=== PATIENT | female | born 1940 | race Caucasian/White ===

== ENCOUNTER 2016-06-06 13:22 | Outpatient (CLI) | payer MEDICARE | END 2016-06-06 13:23 | disposition home or self-care (01) | DX: Z12.31 Encounter for screening mammogram for malignant neoplasm of breast (principal) ==

== ENCOUNTER 2016-06-06 13:23 | Outpatient (CLI) | payer MEDICARE | END 2016-06-06 13:24 | disposition home or self-care (01) | DX: M81.0 Age-related osteoporosis without current pathological fracture (principal) ==

== ENCOUNTER 2017-09-01 16:27 | Outpatient (CLI) | payer MEDICARE | END 2017-09-01 16:28 | disposition EMS.NT | LOC: EMS 16:27 | PROVIDERS: ATTEND Surgery | DX: Z03.89 Encounter for observation for other suspected diseases and conditions ruled out (principal); V43.52XA Car driver injured in collision with other type car in traffic accident, initial encounter; Y92.413 State road as the place of occurrence of the external cause ==

== ENCOUNTER 2017-11-30 19:52 | Outpatient (CLI) | payer MEDICARE | END 2017-11-30 19:53 | disposition critical access hospital (66) | LOC: EMS 19:52 | PROVIDERS: ATTEND Surgery | DX: H57.13 Ocular pain, bilateral (principal) | CPT/HCPCS: A0425; A0429 ==

== ENCOUNTER 2017-11-30 20:18 | Emergency (ER) | payer MEDICARE ==
[2017-11-30] MEDS ORDERED: PROPARACAINE 0.5% OPHTH DROPS 15 ML EACHEYE STA (21:12)
--- NOTE | 2017-11-30 21:20 | ED Physician Documentation ---
PD HPI OPHTHO - Stated complaint Stated Complaint: EYES BURNING - Chief complaint Chief Complaint: Allergic Rx - History obtained from History obtained from: Patient, Family - History of Present Illness Timing - onset: Enter time (1830), Today Timing - duration: Hours Timing - details: Abrupt onset, Still present Location: Both Quality / character: Itching, Burning, Throbbing, Sharp Associated symptoms: Redness, Tearing, FB sensation, Photophobia. No: Swelling Contributing factors: Chemical exposure, base Similar symptoms before: Has not had sx before Recently seen: Not recently seen - Additional information Additional information: 76-year-old female was cleaning her commode earlier today with [place]. She states that about a half hour later she was sitting on her couch talking to her girlfriend on the phone and she developed acute pain and burning in both eyes with tearing and this was severe. She had to call her ex- she got a ride back to his house in [place] where she is now living and eventually she called the ambulance for transport to the hospital. Review of Systems Constitutional: denies: Fever, Chills Eyes: reports: Photophobia, Irritation. denies: Loss of vision, Decreased vision Ears: denies: Ear pain Nose: reports: Congestion. 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, Hysterectomy - Present Medications Home Medications: Ambulatory Orders Medication Instructions Recorded Confirmed Another Thyroid Medication 11/30/17 11/30/17 Estradiol 0.5 mg PO 11/30/17 Levothyroxine [Synthroid] 75 mcg PO QDAC 11/30/17 11/30/17 Neomycin/Poly/Dex Ophth Drops 1 drops EACHEYE QID #1 bottle 11/30/17 [Maxitrol Ophth Drops] - Allergies Allergies/Adverse Reactions: Allergies Allergy/AdvReac Type Severity Reaction Status Date / Time aspirin Allergy Unknown Verified 11/30/17 20:50 - Social History Does the pt smoke?: No Smoking Status: Never smoker Does the pt drink ETOH?: Yes Does the pt have substance abuse?: No - Immunizations Immunizations are current?: Yes PD ED PE NORMAL - Vitals Vital signs reviewed: Yes (hypertensive) - General General: Alert and 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, Well developed/nourished, Other (sitting with eyes closed and appears anxious) - HEENT HEENT: Atraumatic, PERRL, EOMI - Neck Neck: Supple, no meningeal sign, No bony TTP - Respiratory Respiratory: No respiratory distress - Derm Derm: Normal color, Warm and dry, No rash - Extremities Extremities: No deformity, No edema - Neuro Neuro: Alert and 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, 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 She is administered proparicaine and has immeadiate relief. She is irrigated with copious amounts of saline ( 1 liter to each eye). The [place] contains feldspar and exam of the cornea show uptake superficially consistent with an abrasion. - Sepsis Event Vital Signs: Vital Signs - 24 hr 11/30/17 20:32 Temperature 36.9 C Heart Rate 79 Respiratory 18 Rate Blood Pressure 176/78 H O2 Saturation 97 Oxygen O2 Source Room air Departure - Departure Disposition: 01 Home, Self Care Clinical Impression: Corneal abrasion of both eyes Qualifiers: Encounter type: initial encounter Qualified Code(s): S05.01XA - Injury of conjunctiva and corneal abrasion without foreign body, right eye, initial encounter; S05.02XA - Injury of conjunctiva and corneal abrasion without foreign body, left eye, initial encounter; S05.02XA - Injury of conjunctiva and corneal abrasion without foreign body, left eye, initial encounter Condition: Stable Instructions: ED Eye Injury Corneal Abrasion Follow-Up: River Arreola MD [Primary Care Provider] - Krishna Gunter MD [Provider Admit Priv/Credential] - Prescriptions: Neomycin/Poly/Dex Ophth Drops [Maxitrol Ophth Drops] 1 drops EACHEYE QID #1 bottle
[2017-11-30 22:45] LABS: BILIRUBIN,URINE NEGATIVE (NEGATIVE); GLUCOSE, URINE (UA) NEGATIVE (NEGATIVE); KETONES,URINE (UA) 40 mg/dL (NEGATIVE); LEUKOCYTE ESTERASE, URINE NEGATIVE (NEGATIVE); NITRITE,URINE NEGATIVE (NEGATIVE); OCCULT BLOOD,URINE NEGATIVE (NEGATIVE); PH,URINE 5.5 PH (5.0-7.5); PROTEIN,URINE NEGATIVE (NEGATIVE); UROBILINOGEN,URINE 0.2 (NORMAL) E.U./dL (NORMAL)
[2017-11-30] MEDS ORDERED: NEOMYCIN/POLYMYX/DEXAMETH OPHTH DROPS 5 ML EACHEYE STA (23:02)
[2017-11-30 23:15] LABS: CLARITY,URINE CLEAR (CLEAR)
[2017-11-30 23:26] VITALS: BP 151/70
== END 2017-11-30 23:26 | disposition home or self-care (01) ==
LOC: EDUNIT# → EDBD → ED 20:18
DX: S05.02XA Injury of conjunctiva and corneal abrasion without foreign body, left eye, initial encounter (principal); S05.01XA Injury of conjunctiva and corneal abrasion without foreign body, right eye, initial encounter; Y93.E9 Activity, other interior property and clothing maintenance; Y92.002 Bathroom of unspecified non-institutional (private) residence as the place of occurrence of the external cause
CPT/HCPCS: 81003; 99283; J3490; 81001; 87086

== ENCOUNTER 2018-03-15 16:46 | Outpatient (CLI) | payer MEDICARE ==
--- NOTE | 2018-03-17 10:31 | XRAY Report ---
Reason: Left 5th digit pain Procedure Date: 03/15/2018 Accession Number: [id number] / [id number] Procedure: XR - Foot 3 View LT CPT Code: FULL RESULT: EXAM: LEFT FOOT RADIOGRAPHY EXAM DATE: 03/15/2018 05:24 PM. CLINICAL HISTORY: Left 5th digit pain. COMPARISON: None. TECHNIQUE: 4 views. FINDINGS: Bones: Decreased bone mineralization. Subtle lucency through the base of the fifth proximal phalanx on the fifth toe radiograph, questionable for nondisplaced fracture. Small marginal erosion along the lateral aspect of the fifth proximal phalanx head. Joints: No dislocation. Soft Tissues: Nonspecific soft tissue calcification in the fifth digit soft tissues dorsal to the middle phalanx IMPRESSION: 1. Possible nondisplaced fracture at the base of the fifth proximal phalanx seen on one view only 2. Small marginal erosion in the lateral fifth proximal phalanx head. Gout can have this appearance. 3. Nonspecific soft tissue calcification volar to the fifth middle phalanx RADIA
== END 2018-03-15 16:47 | disposition home or self-care (01) ==
LOC: DI 16:46
PROVIDERS: ATTEND Nurse Practitioner Family
DX: M79.675 Pain in left toe(s) (principal); S99.922A Unspecified injury of left foot, initial encounter

== ENCOUNTER 2018-08-19 09:28 | Outpatient (CLI) | payer MEDICARE ==
[2018-08-19 18:49] LABS: ALBUMIN/GLOBULIN RATIO 1.7 (1.0-2.2); ALKALINE PHOSPHATASE 59 IU/L (42-121); ALT ALANINE AMINOTRANSFERASE 20 IU/L (10-60); AST ASPARTATE AMINOTRANSFERASE 32 IU/L (10-42); BILIRUBIN,TOTAL 0.8 mg/dL (0.2-1.0); BUN - BLOOD UREA NITROGEN 22 mg/dL (6-20); CALCIUM 8.9 mg/dL (8.5-10.3); CARBON DIOXIDE - CO2 29 mmol/L (21-32); CHLORIDE 102 mmol/L (101-111); CHOL/HDL RATIO 2.3 (<4.4); CHOLESTEROL 214 mg/dL; CREATININE 0.6 mg/dL (0.4-1.0); GFR - MDRD 97 (>89); GLUCOSE 85 mg/dL (70-100); HDL CHOLESTEROL 95 mg/dL; LDL CHOLESTEROL,CALCULATED 111 mg/dL; LDL/HDL RATIO 1.2 (<4.4); SODIUM 139 mmol/L (135-145); TOTAL PROTEIN 6.4 g/dL (6.7-8.2); VLDL CHOLESTEROL 8 mg/dL
== END 2018-08-19 09:29 | disposition home or self-care (01) ==
LOC: LAB.F 09:28
PROVIDERS: ATTEND Family Medicine
DX: E03.9 Hypothyroidism, unspecified (principal); E78.2 Mixed hyperlipidemia
CPT/HCPCS: 36415; 80053; 80061; 83721; 84443; 84481; 84482

== ENCOUNTER 2018-08-27 17:34 | Emergency (ER) | payer MEDICARE ==
--- NOTE | 2018-08-27 17:54 | ED Physician Documentation ---
History of Present Illness - Stated complaint Stated Complaint: SENT BY - Chief complaint Chief Complaint: Cardiac - History obtained from History obtained from: Patient - Additonal information Additional information: Patient is a 77-year-old female with history of hypothyroidism presenting from her PCPs office with likely new diagnosis of atrial flutter. Patient reports that approximately over the last 10 days she has felt short episodes of palpitations that also were associated with lightheadedness but no syncope. Patient denies associated chest or abdominal pain, shortness of breath, as well as any other new symptoms like fever, vomiting, urinary stool changes, cough recently. Patient also denies any recent travel, new medications, alcohol intake or other inciting incident that led to symptoms starting. Patient does however admit to significant stress at work. Patient's last cardiac workup was several years ago. No other improving or worsening factors to her symptoms noted. She is otherwise compliant with all her medications including her thyroid medication. Review of Systems Constitutional: denies: Fever Cardiac: reports: Palpitations. 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, Hysterectomy - Present Medications Home Medications: Ambulatory Orders Medication Instructions Recorded Confirmed Another Thyroid Medication 11/30/17 11/30/17 Levothyroxine [Synthroid] 75 mcg PO QDAC 11/30/17 11/30/17 RX: Estradiol 0.5 mg PO 11/30/17 Cephalexin [Keflex] 500 mg PO Q6H #12 capsule 05/21/18 RX: Metoprolol Tartrate 50 mg PO DAILY #10 tablet 08/27/18 - Allergies Allergies/Adverse Reactions: Allergies Allergy/AdvReac Type Severity Reaction Status Date / Time aspirin Allergy Unknown Verified 08/27/18 17:40 codeine AdvReac Nausea Verified 08/27/18 17:40 - Social History Does the pt smoke?: No Smoking Status: Never smoker Does the pt drink ETOH?: Yes Does the pt have substance abuse?: No - Immunizations Immunizations are current?: Yes - POLST Patient has POLST: No PD ED PE NORMAL - General General: Alert and 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, No acute distress, Well developed/nourished - HEENT HEENT: Atraumatic, Moist mucous membranes - Cardiac Cardiac: No murmur, Other (Somewhat irregular, normal rate) - Respiratory Respiratory: No respiratory distress, Clear bilaterally - Abdomen Abdomen: Normal bowel sounds, Soft, Non tender, Non distended - Derm Derm: Normal color, Warm and dry, No rash - Extremities Extremities: No deformity, No tenderness to palpate, No edema, No calf tenderness / cord - Neuro Neuro: Alert and 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, No motor deficit, No sensory deficit - Psych Psych: Normal mood, Normal affect Results - Vitals Vitals: Vital Signs - 24 hr 08/27/18 08/27/18 08/27/18 17:40 18:07 20:12 Temperature 36.6 C Heart Rate 72 78 98 Respiratory 16 18 18 Rate Blood Pressure 126/75 144/84 H 124/75 O2 Saturation 99 99 99 Oxygen O2 Source Room air - EKG (time done) 1751 Rate: Rate (enter#) (97) Rhythm: Atrial flutter - Labs Labs: Laboratory Tests 08/27/18 08/27/18 08/27/18 18:18 18:18 18:18 WBC 5.2 RBC 4.69 Hgb 14.0 Hct 42.9 MCV 91.6 MCH 29.9 MCHC 32.6 RDW 13.7 Plt Count 172 MPV 9.9 Neut # (Auto) 3.4 Lymph # (Auto) 1.2 L Craig # (Auto) 0.5 Eos # (Auto) 0.1 Baso # (Auto) 0.1 Absolute Nucleated RBC 0.00 Nucleated RBC % 0.0 Sodium 138 Potassium 3.6 Chloride 101 Carbon Dioxide 29 Anion Gap 8.0 BUN 20 Creatinine 0.6 Estimated GFR (MDRD) 97 Glucose 126 H Calcium 9.3 Total Bilirubin 0.9 AST 34 ALT 21 Alkaline Phosphatase 65 Troponin I 0.06 Total Protein 6.9 Albumin 4.0 Globulin 2.9 Albumin/Globulin Ratio 1.4 Lipase 35 PD MEDICAL DECISION MAKING - ED course Complexity details: reviewed old records, reviewed results, re-evaluated patient, considered differential, d/w patient ED course: Patient is presenting from her PCPs office with likely new diagnosis of atrial flutter. Reportedly, while in the PCPs office, patient had atrial flutter with RVR. However, upon arrival to the ED and during ED stay, patient remained in atrial flutter without RVR. Patient was also asymptomatic while in the ED. Patient had not received any medication prior to arrival. As patient has had these intermittent symptoms over the last several days, feel that she is likely in paroxysmal atrial flutter and as she is otherwise hemodynamically stable, asymptomatic and not anticoagulated, do not feel she is appropriate for emergent electrical cardioversion. Also do not feel patient requires IV medications at this time given her appropriate rate. Did obtain chest x-ray, EKG, and screening lab work to otherwise screen for other complications. Workup returned unremarkable. No signs of ACS, NE, unstable angina at this time. Patient is not hypoxic and denies symptoms that would raise high concern for PE.Do not see evidence of pneumonia. Patient does have underlying thyroid disorder and primary care physician has already discussed this issue with her and plans to adjust her thyroid medications as this could be contributing to her new arrhythmia. However, she does not appear to be in thyroid storm or experiencing other urgent autoimmune or thyroid issue. Patient's PCP has Scooter provided her Xarelto to start tomorrow. At this time, feel that metoprolol, low-dose, is appropriate to start for additional rate control until follow-up with her PCP later this week. Also discussed need for cardiology follow-up. Feel that patient is safe to discharge home otherwise and she has voiced understanding of strict return precautions and other recommendations. Departure - Departure Disposition: 01 Home, Self Care Clinical Impression: Atrial flutter Condition: Good Instructions: ED Paroxysmal Atrial Flutter Follow-Up: River Arreola MD [Primary Care Provider] - Within 3 Days Prescriptions: RX: Metoprolol Tartrate 50 mg PO DAILY #10 tablet Comments: Please continue home medications as previously instructed. Please take metoprolol to control the rate of your new abnormal rhythm. Please take Xarelto for blood thinning control. Please follow-up with your primary care physician as scheduled later this week. Recommend contacting cardiology as soon as possible to also establish follow-up to investigate your new heart arrhythmia. If you experience dizziness, lightheadedness, chest pain, difficulty breathing, or other concerns, please return to the ED immediately. Discharge Date/Time: 08/27/18 20:12
[2018-08-27] MEDS: SODIUM CHLORIDE 0.9% 1,000 ML IV ONE (18:21)
[2018-08-27 18:24] LABS: BASOPHILS # (AUTO) 0.1 10^3/uL (0.0-0.1); EOSINOPHILS # (AUTO) 0.1 10^3/uL (0.0-0.7); EOSINOPHILS % (AUTO) 2.1 %; LYMPHOCYTES # (AUTO) 1.2 10^3/uL (1.5-3.5); LYMPHOCYTES % (AUTO) 22.2 %; MEAN CORPUSCULAR HEMOGLOBIN 29.9 pg (27.0-31.0); MEAN CORPUSCULAR HGB CONC 32.6 g/dL (32.0-36.0); MEAN CORPUSCULAR VOLUME 91.6 fL (81.0-99.0); MEAN PLATELET VOLUME 9.9 fL (7.9-10.8); MONOCYTES # (AUTO) 0.5 10^3/uL (0.0-1.0); MONOCYTES % (AUTO) 9.6 %; NEUTROPHILS # (AUTO) 3.4 10^3/uL (1.5-6.6); NEUTROPHILS % (AUTO) 65.1 %; PLT - PLATELET COUNT 172 10^3/uL (130-450); RED BLOOD COUNT 4.69 10^6/uL (4.20-5.40); RED CELL DISTRIBUTION WIDTH 13.7 % (12.0-15.0); WHITE BLOOD COUNT 5.2 x10^3/uL (4.8-10.8)
[2018-08-27 18:42] LABS: ALBUMIN/GLOBULIN RATIO 1.4 (1.0-2.2); BILIRUBIN,TOTAL 0.9 mg/dL (0.2-1.0); CALCIUM 9.3 mg/dL (8.5-10.3); CREATININE 0.6 mg/dL (0.4-1.0); TOTAL PROTEIN 6.9 g/dL (6.7-8.2)
--- NOTE | 2018-08-27 18:50 | XRAY Report ---
Reason: new fib Procedure Date: 08/27/2018 Accession Number: [id number] / [id number] Procedure: XR - Chest 2 View X-Ray CPT Code: 64298 FULL RESULT: EXAM: CHEST RADIOGRAPHY EXAM DATE: 08/27/2018 06:15 PM. CLINICAL HISTORY: Chest pain COMPARISON: None. TECHNIQUE: 2 views. FINDINGS: Lungs/Pleura: No focal opacities evident. No pleural effusion. No pneumothorax. Normal volumes. Mediastinum: Heart and mediastinal contours are unremarkable. Other: None. IMPRESSION: No acute intrathoracic plain film abnormality. RADIA
[2018-08-27] MEDS ORDERED: METOPROLOL TARTRATE 50 MG TABLET ONE (19:25)
[2018-08-27] MEDS: METOPROLOL TARTRATE 50 MG TABLET PO STA (20:12)
[2018-08-27 20:13] VITALS: BP 124/75
[2018-08-28] MEDS ORDERED: METOPROLOL SUCCINATE 50 MG TABLET PO ONE (19:12)
== END 2018-08-27 20:12 | disposition home or self-care (01) ==
LOC: ED 17:34
DX: I48.92 Unspecified atrial flutter (principal); E03.9 Hypothyroidism, unspecified; R94.31 Abnormal electrocardiogram [ECG] [EKG]
CPT/HCPCS: 36415; 71046; 80053; 83690; 84443; 84484; 85025; 93005; 99283

== ENCOUNTER 2018-10-01 12:36 | Outpatient (CLI) | payer MEDICARE | END 2018-10-01 12:37 | disposition home or self-care (01) | LOC: DI 12:36 | PROVIDERS: ATTEND Internal Medicine Cardiovascular Disease | DX: I48.0 Paroxysmal atrial fibrillation (principal); I27.20 Pulmonary hypertension, unspecified; I51.7 Cardiomegaly | CPT/HCPCS: 93306 ==

== ENCOUNTER 2019-01-22 09:01 | Outpatient (CLI) | payer MEDICARE ==
[2019-01-22 17:56] LABS: BASOPHILS % (AUTO) 0.7 %; EOSINOPHILS # (AUTO) 0.1 10^3/uL (0.0-0.7); HGB - HEMOGLOBIN 15.1 g/dL (12.0-16.0); LYMPHOCYTES # (AUTO) 1.4 10^3/uL (1.5-3.5); LYMPHOCYTES % (AUTO) 31.3 %; MEAN CORPUSCULAR HEMOGLOBIN 28.2 pg (27.0-31.0); MEAN CORPUSCULAR VOLUME 94.2 fL (81.0-99.0); MONOCYTES # (AUTO) 0.3 10^3/uL (0.0-1.0); MONOCYTES % (AUTO) 6.5 %; NEUTROPHILS # (AUTO) 2.7 10^3/uL (1.5-6.6); NEUTROPHILS % (AUTO) 59.1 %; PLT - PLATELET COUNT 206 10^3/uL (130-450); RED BLOOD COUNT 5.35 10^6/uL (4.20-5.40); RED CELL DISTRIBUTION WIDTH 15.5 % (12.0-15.0); WHITE BLOOD COUNT 4.6 x10^3/uL (4.8-10.8)
[2019-01-22 18:10] LABS: ALBUMIN 4.1 g/dL (3.2-5.5); ALBUMIN/GLOBULIN RATIO 1.3 (1.0-2.2); ALKALINE PHOSPHATASE 66 IU/L (42-121); ALT ALANINE AMINOTRANSFERASE 19 IU/L (10-60); AST ASPARTATE AMINOTRANSFERASE 32 IU/L (10-42); BILIRUBIN,TOTAL 1.1 mg/dL (0.2-1.0); BUN - BLOOD UREA NITROGEN 14 mg/dL (6-20); CALCIUM 9.2 mg/dL (8.5-10.3); CARBON DIOXIDE - CO2 30 mmol/L (21-32); CHLORIDE 100 mmol/L (101-111); CHOL/HDL RATIO 2.4 (<4.4); CHOLESTEROL 221 mg/dL; CREATININE 0.7 mg/dL (0.4-1.0); GFR - MDRD 81 (>89); GLUCOSE 83 mg/dL (70-100); HDL CHOLESTEROL 91 mg/dL; LDL CHOLESTEROL,CALCULATED 117 mg/dL; LDL/HDL RATIO 1.3 (<4.4); SODIUM 139 mmol/L (135-145); TOTAL PROTEIN 7.2 g/dL (6.7-8.2); VLDL CHOLESTEROL 13 mg/dL
[2019-01-22 18:12] LABS: HB2 TOTAL 15.6 g/dL; HEMOGLOBIN A1C 0.62 g/dL; HEMOGLOBIN A1C % 5.8 % (4.6-6.2)
== END 2019-01-22 09:02 | disposition home or self-care (01) ==
LOC: LAB.S 09:01
PROVIDERS: ATTEND Family Medicine
DX: I10 Essential (primary) hypertension (principal); E78.5 Hyperlipidemia, unspecified; E03.9 Hypothyroidism, unspecified; Z13.1 Encounter for screening for diabetes mellitus; M81.0 Age-related osteoporosis without current pathological fracture
CPT/HCPCS: 36415; 80053; 80061; 82306; 83036; 83721; 84443; 85025

== ENCOUNTER 2019-08-19 09:36 | Outpatient (CLI) | payer MEDICARE | END 2019-08-19 09:37 | disposition home or self-care (01) | LOC: LAB.S 09:36 | PROVIDERS: ATTEND Family Medicine | DX: E03.9 Hypothyroidism, unspecified (principal) | CPT/HCPCS: 36415; 84443 ==

== ENCOUNTER 2020-01-08 12:40 | Outpatient (CLI) | payer MEDICARE ==
[2020-01-08 12:54] LABS: BASOPHILS % (AUTO) 0.4 %; EOSINOPHILS # (AUTO) 0.1 10^3/uL (0.0-0.7); EOSINOPHILS % (AUTO) 1.9 %; HGB - HEMOGLOBIN 13.1 g/dL (12.0-16.0); LYMPHOCYTES # (AUTO) 1.3 10^3/uL (1.5-3.5); LYMPHOCYTES % (AUTO) 19.4 %; MEAN CORPUSCULAR HGB CONC 31.3 g/dL (32.0-36.0); MEAN CORPUSCULAR VOLUME 96.1 fL (81.0-99.0); MEAN PLATELET VOLUME 10.6 fL (7.9-10.8); MONOCYTES # (AUTO) 0.5 10^3/uL (0.0-1.0); MONOCYTES % (AUTO) 7.9 %; NEUTROPHILS # (AUTO) 4.8 10^3/uL (1.5-6.6); PLT - PLATELET COUNT 215 10^3/uL (130-450); RED BLOOD COUNT 4.36 10^6/uL (4.20-5.40); RED CELL DISTRIBUTION WIDTH 13.4 % (12.0-15.0); WHITE BLOOD COUNT 6.9 x10^3/uL (4.8-10.8)
[2020-01-08 13:06] LABS: CALCIUM 9.4 mg/dL (8.5-10.3); CREATININE 0.7 mg/dL (0.4-1.0)
== END 2020-01-08 12:41 | disposition home or self-care (01) ==
LOC: LAB 12:40
PROVIDERS: ATTEND Internal Medicine Cardiovascular Disease
DX: I48.91 Unspecified atrial fibrillation (principal)
CPT/HCPCS: 36415; 80048; 85025

== ENCOUNTER 2020-03-08 17:13 | Outpatient (CLI) | payer MEDICARE ==
--- NOTE | 2020-03-09 12:56 | XRAY Report ---
PROCEDURE: Lumbar Spine 2 View INDICATIONS: Low back pain TECHNIQUE: 2 views of the lumbar spine were acquired. COMPARISON: None. FINDINGS: Bones: 5 [id number] vertebrae are present. There is dextroscoliosis of the upper lumbar spine with reciprocal levocurvature at the lumbosacral junction. Multilevel lumbar spondylosis most pronoun krupa in the lower lumbar spine. No vertebral body compression fractures. No suspicious bony lesions. Soft tissues: Overlying bowel gas pattern is normal. No suspicious soft tissue calcifications. IMPRESSION: 1. Lumbar spine without acute fracture or compression fracture. 2. Dextroscoliosis of the upper lumbar spine with reciprocal levocurvature of the lumbosacral junctio n. 3. Multilevel lumbar spondylosis. Reviewed by: Tiburcio Beltran MD on 03/09/2020 12:55 PM PDT Approved by: Tiburcio Beltran MD on 03/09/2020 12:55 PM PDT Station ID: [id number]
== END 2020-03-08 17:14 | disposition home or self-care (01) ==
LOC: DI 17:13
PROVIDERS: ATTEND Nurse Practitioner Family
DX: M47.816 Spondylosis without myelopathy or radiculopathy, lumbar region (principal); M41.86 Other forms of scoliosis, lumbar region
CPT/HCPCS: 36415; 72100; 84443

== ENCOUNTER 2020-11-02 10:33 | Emergency (ER) | payer MEDICARE ==
--- OUTSIDE RECORDS SUMMARY | 2020-11-02 10:55 | EXTERNAL MEDICAL SUMMARY RPT | Continuity of Care Document ---
:1940 Demographics Phone Unavailable Preferred Language Unknown Marital Status Unknown Voodoo Affiliation Unknown Race Unknown Ethnic Group Unknown Author Organization [facility] Address [address] [phone] Phone Allergies Encounters Medications Problems Results
[2020-11-02] MEDS ORDERED: BUFFERED LIDOCAINE 10 ML SYRINGE SUBQ STA (12:48)
[2020-11-02] MEDS ORDERED: TETANUS/DIPHTHERIA/PERTUSSIS 0.5 ML SYRINGE IM ONE (13:35)
--- NOTE | 2020-11-02 13:38 | ED Physician Documentation ---
PD HPI UPPER EXT INJURY - Stated complaint Stated Complaint: LT HAND INJ - Chief complaint Chief Complaint: Laceration - History obtained from History obtained from: Patient - History of Present Illness Location: Left, Hand Type of injury: Blunt / blow Where injury occurred: Home Timing - onset: Last night Timing - duration: Hours Timing - details: Abrupt onset, Still present Improved by: Rest, Immobilization Worsened by: Moving, Palpating Associated symptoms: Swelling, Discolored. No: Weakness, Numbness, Tingling Contributing factors: Anticoagulated Similar symptoms before: Diagnosis (laceration) Recently seen: Not recently seen - Additonal information Additional information: Previously well 79-year-old female who is on Xarelto has hit the back of her left hand on a doorknob and she has a laceration to the dorsum of the hand. She is able to use her hand without difficulty was able to control the bleeding with direct pressure and she comes in now to the emergency department for suturing. The injury happened last night. Review of Systems Constitutional: denies: Fever Eyes: denies: Decreased vision Ears: denies: Ear pain Nose: denies: Congestion Respiratory: denies: Cough GI: denies: Vomiting Skin: reports: Laceration (s). 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, Hysterectomy - Present Medications Home Medications: Ambulatory Orders Medication Instructions Recorded Confirmed Another Thyroid Medication 11/30/17 11/30/17 Levothyroxine [Synthroid] 75 mcg PO QDAC 11/30/17 11/30/17 estradioL [Estradiol] 0.5 mg PO 11/30/17 cephALEXin [Keflex] 500 mg PO Q6H #12 capsule 05/21/18 Metoprolol Tartrate 50 mg PO DAILY #10 tablet 08/27/18 - Allergies Allergies/Adverse Reactions: Allergies Allergy/AdvReac Type Severity Reaction Status Date / Time aspirin Allergy Unknown Verified 08/27/18 17:40 Penicillins Allergy Rash Verified 11/02/20 10:48 codeine AdvReac Nausea Verified 08/27/18 17:40 - Social History Does the pt smoke?: No Smoking Status: Never smoker Does the pt drink ETOH?: Yes Does the pt have substance abuse?: No - Immunizations Immunizations are current?: Yes - POLST Patient has POLST: No PD ED PE NORMAL - Vitals Vital signs reviewed: Yes (hypertension ) - General General: No acute distress, Well developed/nourished - HEENT HEENT: Atraumatic, PERRL, EOMI - Respiratory Respiratory: No respiratory distress - Derm Derm: Normal color, Warm and dry, No rash - Extremities Extremities: No deformity, Normal ROM s pain, No edema, Other (There is a 4.5cm laceration to the dorsum of the left hand over the 1st and 2nd metacarpal. There is a flap of thin skin and there is not involvement of deeper structures. distal n/v inact. 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, No motor deficit, No sensory deficit, Normal speech Eye Opening: Spontaneous Motor: Obeys Commands Verbal: Oriented GCS Score: 15 - Psych Psych: Normal mood, Normal affect Results - Vitals Vitals: Vital Signs - 24 hr 11/02/20 10:42 Temperature 36.7 C Heart Rate 57 L Respiratory 16 Rate Blood Pressure 135/85 H O2 Saturation 99 Oxygen O2 Source Room air Procedures - Laceration (location) left hand Wound type: Curved, Flap, Clean Neurovascular status: Sensory intact, Motor intact, Vascular intact Anesthesia: Lidocaine 1%, With bicarb Wound preparation: Hibiclens, Irrigated copiously NS, Wound explored, To the base Skin layer closure: Nylon, Interrupted, Size #-0 - enter number (4-0) Other: Patient tolerated well, No complications, Neurovascular intact, Dressing applied, Tetanus booster given PD MEDICAL DECISION MAKING - ED course Complexity details: reviewed results, re-evaluated patient, considered differential, d/w patient ED course: 79-year-old female with a laceration to the dorsum of left hand which was done last night is within the window of opportunity for repair and the wound is cleansed and sutured. The patient tolerates this well and she is given a tetanus booster. Departure - Departure Disposition: 01 Home, Self Care Clinical Impression: Laceration of hand Qualifiers: Encounter type: initial encounter Foreign body presence: without foreign body Laterality: left Qualified Code(s): S61.412A - Laceration without foreign body of left hand, initial encounter Condition: Stable Instructions: ED Laceration Hand Follow-Up: Ally Mendoza ARNP [Primary Care Provider] - Comments: Sutures will need to be removed in 7 to 10 days Forms: Activity restrictions
[2020-11-02 13:47] VITALS: BP 138/91
== END 2020-11-02 14:15 | disposition home or self-care (01) ==
LOC: ED 10:33
DX: S61.412A Laceration without foreign body of left hand, initial encounter (principal); W22.8XXA Striking against or struck by other objects, initial encounter; Y92.009 Unspecified place in unspecified non-institutional (private) residence as the place of occurrence of the external cause; Z23 Encounter for immunization; Z79.01 Long term (current) use of anticoagulants
CPT/HCPCS: 12002; 90471; 99282; 99283

== ENCOUNTER 2021-02-17 15:55 | Outpatient (CLI) | payer MEDICARE ==
[2021-02-17 16:23] LABS: BASOPHILS % (AUTO) 0.4 %; EOSINOPHILS # (AUTO) 0.1 10^3/uL (0.0-0.7); HGB - HEMOGLOBIN 14.1 g/dL (12.0-16.0); LYMPHOCYTES # (AUTO) 1.6 10^3/uL (1.5-3.5); LYMPHOCYTES % (AUTO) 23.8 %; MEAN CORPUSCULAR HEMOGLOBIN 29.1 pg (27.0-31.0); MEAN CORPUSCULAR HGB CONC 30.7 g/dL (32.0-36.0); MEAN CORPUSCULAR VOLUME 94.8 fL (81.0-99.0); MEAN PLATELET VOLUME 11.6 fL (7.9-10.8); MONOCYTES # (AUTO) 0.6 10^3/uL (0.0-1.0); NEUTROPHILS # (AUTO) 4.6 10^3/uL (1.5-6.6); NEUTROPHILS % (AUTO) 66.5 %; PLT - PLATELET COUNT 193 10^3/uL (130-450); RED BLOOD COUNT 4.85 10^6/uL (4.20-5.40); RED CELL DISTRIBUTION WIDTH 14.8 % (12.0-15.0); WHITE BLOOD COUNT 6.9 x10^3/uL (4.8-10.8)
[2021-02-17 16:36] LABS: CALCIUM 9.3 mg/dL (8.5-10.3); CREATININE 0.6 mg/dL (0.4-1.0); POTASSIUM 4.1 mmol/L (3.5-5.0)
== END 2021-02-17 15:56 | disposition home or self-care (01) ==
LOC: LAB 15:55
PROVIDERS: ATTEND Internal Medicine Cardiovascular Disease
DX: I48.91 Unspecified atrial fibrillation (principal)
CPT/HCPCS: 36415; 80048; 84443; 85025

== ENCOUNTER 2021-03-30 23:41 | Emergency (ER) | payer MEDICARE ==
[2021-03-31 00:07] VITALS: BP 123/78
[2021-03-31 00:22] LABS: BILIRUBIN,URINE NEGATIVE (NEGATIVE); GLUCOSE, URINE (UA) NEGATIVE (NEGATIVE); KETONES,URINE (UA) NEGATIVE (NEGATIVE); LEUKOCYTE ESTERASE, URINE TRACE (NEGATIVE); NITRITE,URINE POSITIVE (NEGATIVE); OCCULT BLOOD,URINE LARGE (NEGATIVE); PH,URINE 6.5 PH (5.0-7.5); PROTEIN,URINE >=300 mg/dL (NEGATIVE); UROBILINOGEN,URINE 0.2 (NORMAL) E.U./dL (NORMAL)
[2021-03-31 00:25] LABS: CLARITY,URINE SL. CLOUDY (CLEAR)
[2021-03-31 00:26] LABS: BACTERIA,URINE Few /HPF (None Seen); RBC,URINE TNTC /HPF (0-5); SQUAMOUS EPITHELIAL CELL,UR RARE Squamous (<= Few)
--- NOTE | 2021-03-31 00:50 | ED Physician Documentation ---
PD HPI FEMALE - Stated complaint Stated Complaint: FEMALE - Chief complaint Chief Complaint: UTI - History obtained from History obtained from: Patient - History of Present Illness Timing - onset: Today Timing - duration: Days (1) Timing - details: Abrupt onset, Still present Associated symptoms: Dysuria, Urinary frequency, Hematuria. 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 and currettage, Hysterectomy - Present Medications Home Medications: Ambulatory Orders Medication Instructions Recorded Confirmed Levothyroxine [Synthroid] 75 mcg PO QDAC 11/30/17 03/31/21 estradioL [Estradiol] 0.5 mg PO 11/30/17 Metoprolol Tartrate 50 mg PO DAILY #10 tablet 08/27/18 03/31/21 Phenazopyridine HCl [Pyridium] 100 mg PO TID PRN #15 tablet 03/31/21 Rivaroxaban [Xarelto] 20 mg PO DAILY 03/31/21 03/31/21 Sulfamethox/Trimeth 800/160 1 each PO BID #12 tablet 03/31/21 [Bactrim Ds 800/160] - Allergies Allergies/Adverse Reactions: Allergies Allergy/AdvReac Type Severity Reaction Status Date / Time aspirin Allergy Unknown Verified 03/31/21 00:04 Penicillins Allergy Rash Verified 03/31/21 00:04 codeine AdvReac Nausea Verified 03/31/21 00:04 - Social History Does the pt smoke?: No Smoking Status: Never smoker Does the pt drink ETOH?: Yes Does the pt have substance abuse?: No - Immunizations Immunizations are current?: Yes - POLST Patient has POLST: No PD ED PE NORMAL - Vitals Vital signs reviewed: Yes - General General: Alert and 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, No acute distress, Well developed/nourished - Female Female : Deferred - Rectal Rectal: Deferred - Back Back: No CVA TTP - Derm Derm: Normal color, Warm and dry - Neuro Neuro: Alert and 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, No motor deficit, Normal speech Results - Vitals Vitals: Vital Signs - 24 hr 03/31/21 03/31/21 03/31/21 00:04 01:14 01:22 Temperature 36.1 C L Heart Rate 62 Respiratory 18 15 16 Rate Blood Pressure 123/78 O2 Saturation 97 03/31/21 01:49 Temperature Heart Rate Respiratory 15 Rate Blood Pressure O2 Saturation Oxygen O2 Source Room air - Labs Labs: Laboratory Tests 03/31/21 00:03 Urine Color LT RED Urine Clarity SL. CLOUDY Urine pH 6.5 Ur Specific [place] 1.010 Urine Protein >=300 H Urine Glucose (UA) NEGATIVE Urine Ketones NEGATIVE Urine Occult Blood LARGE H Urine Nitrite POSITIVE H Urine Bilirubin NEGATIVE Urine Urobilinogen 0.2 (NORMAL) Ur Leukocyte Esterase TRACE H Urine RBC TNTC H Urine WBC 11-25 H Ur Squamous Epith Cells RARE Squamous Urine Bacteria Few Ur Microscopic Review INDICATED Urine Culture Comments INDICATED PD MEDICAL DECISION MAKING - ED course Complexity details: reviewed results, considered differential, d/w patient Departure - Departure Disposition: 01 Home, Self Care Clinical Impression: Cystitis Condition: Stable Record reviewed to determine appropriate education?: Yes Instructions: ED UTI Cystitis Female Prescriptions: Sulfamethox/Trimeth 800/160 [Bactrim Ds 800/160] 1 each PO BID #12 tablet Phenazopyridine HCl [Pyridium] 100 mg PO TID PRN #15 tablet PRN Reason: Abdominal Pain Comments: Stay well hydrated. Bactrim antibiotic twice daily for 6 days. Phenazopyridine as needed for urinary discomfort. Add Tylenol if needed for pains. You should have improvement over the next couple of days. Recheck if not improving well. The urine culture should result in 2-3 days and we will call you if we need to change antibiotic based on the culture results. I transmitted your scripts to Kristie Soto in [place]. Discharge Date/Time: 03/31/21 01:50
[2021-03-31] MEDS ORDERED: SULFAMETH/TRIMETH DS 800/160 MG TABLET PO STA (01:08)
[2021-03-31] MEDS ORDERED: PHENAZOPYRIDINE 100 MG TABLET PO STA (01:08)
[2021-03-31] MEDS ORDERED: PHENAZOPYRIDINE 100 MG TABLET PO ONE (01:21)
[2021-03-31] MEDS ORDERED: SULFAMETH/TRIMETH DS 800/160 MG TABLET PO ONE (01:21)
== END 2021-03-31 01:50 | disposition home or self-care (01) ==
LOC: ED 23:41
DX: N30.91 Cystitis, unspecified with hematuria (principal); Z79.01 Long term (current) use of anticoagulants
CPT/HCPCS: 81001; 87086; 99283; A9270; 81003

== ENCOUNTER 2021-06-15 09:58 | Outpatient (CLI) | payer MEDICARE | END 2021-06-15 09:59 | disposition home or self-care (01) | LOC: DI 09:58 | PROVIDERS: ATTEND Internal Medicine Cardiovascular Disease | DX: I27.20 Pulmonary hypertension, unspecified (principal); I48.91 Unspecified atrial fibrillation; I51.7 Cardiomegaly | CPT/HCPCS: 93306 ==

== ENCOUNTER 2021-08-18 09:56 | Outpatient (CLI) | payer MEDICARE ==
[2021-08-18 15:19] LABS: THYROID STIMULATING HORMONE 0.65 uIU/mL (0.34-5.60)
== END 2021-08-18 09:57 | disposition home or self-care (01) ==
LOC: LAB.S 09:56
PROVIDERS: ATTEND Registered Nurse
DX: E03.9 Hypothyroidism, unspecified (principal)
CPT/HCPCS: 36415; 84443

== ENCOUNTER 2022-02-27 13:52 | Outpatient (CLI) | payer MEDICARE | END 2022-02-27 13:53 | disposition home or self-care (01) | LOC: DI 13:52 | PROVIDERS: ATTEND Registered Nurse | DX: Z53.9 Procedure and treatment not carried out, unspecified reason (principal) ==

== ENCOUNTER 2022-02-27 13:54 | Outpatient (CLI) | payer MEDICARE ==
--- NOTE | 2022-02-27 14:53 | DEXA Report ---
PROCEDURE: Dexa Spine and/or Hip INDICATIONS: OSTEOPOROSIS TECHNIQUE: Dual energy x-ray absorptiometry (DXA) was performed on a Billetto System. Regions measur ed are the AP Spine, femoral neck, and if needed forearm. COMPARISON: DEXA, 06/06/2016. FINDINGS: Lumbar Spine: Bone Mineral Density 0.839 g/cm/cm,T score -2.8, osteoporosis. Left Hip: Bone Mineral Density 0.734 g/cm/cm,T score -2.2, osteopenia. Left Femoral Neck: Bone Mineral Density 0.735 g/cm/cm, T score -2.2, osteopenic (T score greater or equal to -1.0: NORMAL) (T score from -1.1 to -2.4: OSTEOPENIA) (T score less than or equal to -2.5 to: OSTEOPOROSIS) Compared to last exam on 06/06/2016, the patient's bone mineral density has decreased by 7.3% in left hip and by 5.1% in lumbar spine. Impression: Based on WHO criteria, the patient is osteoporotic. Compared to last exam on 06/06/2016, the patient's bone mineral density has further decreased. Patients with diagnosis of osteoporosis or osteopenia should have regular bone mineral density assess ment. For those eligible for Medicare, routine testing is allowed once every 2 years. Testing frequ ency can be increased for patients who have rapidly progressing disease or for those who are receivin g medical therapy to restore bone mass. Reviewed by: Naomi Freedman MD on 02/27/2022 2:51 PM PDT Approved by: Naomi Freedman MD on 02/27/2022 2:51 PM PDT Station ID: [id number]
== END 2022-02-27 13:55 | disposition home or self-care (01) ==
LOC: DI 13:54
PROVIDERS: ATTEND Registered Nurse
DX: M81.0 Age-related osteoporosis without current pathological fracture (principal)

== ENCOUNTER 2022-06-06 14:11 | Outpatient (CLI) | payer MEDICARE ==
[2022-06-06 20:32] LABS: BASOPHILS % (AUTO) 0.3 %; EOSINOPHILS # (AUTO) 0.1 10^3/uL (0.0-0.7); EOSINOPHILS % (AUTO) 1.1 %; HGB - HEMOGLOBIN 13.7 g/dL (12.0-16.0); LYMPHOCYTES # (AUTO) 1.4 10^3/uL (1.5-3.5); LYMPHOCYTES % (AUTO) 22.4 %; MEAN CORPUSCULAR HEMOGLOBIN 29.9 pg (27.0-31.0); MEAN CORPUSCULAR HGB CONC 31.1 g/dL (32.0-36.0); MEAN CORPUSCULAR VOLUME 96.1 fL (81.0-99.0); MEAN PLATELET VOLUME 14.4 fL (7.9-10.8); MONOCYTES # (AUTO) 0.5 10^3/uL (0.0-1.0); MONOCYTES % (AUTO) 7.7 %; NEUTROPHILS # (AUTO) 4.2 10^3/uL (1.5-6.6); NEUTROPHILS % (AUTO) 68.2 %; PLT - PLATELET COUNT 207 10^3/uL (130-450); RED BLOOD COUNT 4.58 10^6/uL (4.20-5.40); RED CELL DISTRIBUTION WIDTH 14.6 % (12.0-15.0); WHITE BLOOD COUNT 6.2 x10^3/uL (4.8-10.8)
[2022-06-06 20:44] LABS: ALBUMIN 3.7 g/dL (3.2-5.5); BILIRUBIN,TOTAL 1.2 mg/dL (0.2-1.0); CREATININE 0.7 mg/dL (0.4-1.0); TOTAL PROTEIN 7.4 g/dL (6.7-8.2)
[2022-06-06 20:59] LABS: THYROID STIMULATING HORMONE 1.12 uIU/mL (0.34-5.60)
== END 2022-06-06 14:12 | disposition home or self-care (01) ==
LOC: LAB.S 14:11
PROVIDERS: ATTEND Internal Medicine
DX: I48.20 Chronic atrial fibrillation, unspecified (principal); M54.50 Low back pain, unspecified; N95.9 Unspecified menopausal and perimenopausal disorder; E03.9 Hypothyroidism, unspecified
CPT/HCPCS: 36415; 80053; 84443; 85025

== ENCOUNTER 2022-08-22 14:38 | Emergency (ER) | payer MEDICARE ==
[2022-08-22] MEDS ORDERED: METOPROLOL 5 MG/5 ML VIAL IVP STA ×2 (15:09→15:53)
--- NOTE | 2022-08-22 15:14 | ED Physician Documentation ---
History of Present Illness - Stated complaint Stated Complaint: SIMPSON/AFIB - Chief complaint Chief Complaint: Cardiac - History obtained from History obtained from: Patient - Additonal information Additional information: This is an 81-year-old woman with history of atrial fibrillation referred in from the clinic for A-fib with RVR. She does not know when she was last not in A-fib. She had recent issues with shortness of breath and pedal edema although these are resolved now. She states that her coffee shop attendant recently increased her metoprolol from 25 mg twice a day to 50 mg in the morning and 25 at night. She was scared of this and continued to take the old dose. She is anticoagulated with Xarelto. She denies chest pain. PD PAST MEDICAL HISTORY - Past Medical History Cardiovascular: None Respiratory: None Neuro: None Endocrine/Autoimmune: HyPOthyroidism GI: None ICT ANALYST: None : None HEENT: None Psych: None Musculoskeletal: None Derm: None - Past Surgical History Past Surgical History: Yes /ICT ANALYST: Dilation and currettage, Hysterectomy - Present Medications Home Medications: Ambulatory Orders Medication Instructions Recorded Confirmed Levothyroxine [Synthroid] 75 mcg PO QDAC 11/30/17 03/31/21 estradioL [Estradiol] 0.5 mg PO 11/30/17 Metoprolol Tartrate 50 mg PO DAILY #10 tablet 08/27/18 03/31/21 Phenazopyridine HCl [Pyridium] 100 mg PO TID PRN #15 tablet 03/31/21 Rivaroxaban [Xarelto] 20 mg PO DAILY 03/31/21 03/31/21 Sulfamethox/Trimeth 800/160 1 each PO BID #12 tablet 03/31/21 [Bactrim Ds 800/160] Furosemide [Lasix] 20 mg PO DAILY #5 tablet 08/22/22 Potassium Chloride 10 meq PO DAILY #5 cap 08/22/22 - Allergies Allergies/Adverse Reactions: Allergies Allergy/AdvReac Type Severity Reaction Status Date / Time aspirin Allergy Unknown Verified 08/22/22 14:55 Penicillins Allergy Rash Verified 08/22/22 14:55 codeine AdvReac Nausea Verified 08/22/22 14:55 - Social History Does the pt smoke?: No Smoking Status: Never smoker Does the pt drink ETOH?: Yes Does the pt have substance abuse?: No - Immunizations Immunizations are current?: Yes - POLST Patient has POLST: No PD ED PE NORMAL - Vitals Vital signs reviewed: Yes - General General: Alert and 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, No acute distress - HEENT HEENT: PERRL, EOMI - Neck Neck: Other (1+ JVD) - Cardiac Cardiac: Other (Hyperdynamic precordium and irregularly irregular without murmur) - Respiratory Respiratory: No respiratory distress, Other (Mild bibasilar rales) - Abdomen Abdomen: Non tender - Derm Derm: Normal color, Warm and dry - Extremities Extremities: No edema, No calf tenderness / cord - Neuro Neuro: Alert and 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, Normal speech Results - Vitals Vitals: Vital Signs - 24 hr 08/22/22 08/22/22 08/22/22 14:44 15:16 16:26 Temperature 37.1 C Heart Rate 128 H 121 H 94 Respiratory 16 20 Rate Blood Pressure 157/107 H 157/95 H O2 Saturation 99 98 08/22/22 16:45 Temperature Heart Rate 94 Respiratory 18 Rate Blood Pressure 155/89 H O2 Saturation 99 Oxygen O2 Source Room air - EKG (time done) 1451 EKG releavant findings:: EKG personally interpreted by author of this note. Relevant findings are: Rate: Rate (enter#) (128) Rhythm: Atrial fibrillation [place]: Normal Ischemia: Q waves (V1/V2), T wave inversion (lateral with STD) Computer interpretation: Agree with computer - Labs Labs: Laboratory Tests 08/22/22 08/22/22 08/22/22 15:30 15:30 15:30 WBC 8.2 RBC 4.91 Hgb 14.1 Hct 45.8 MCV 93.3 MCH 28.7 MCHC 30.8 L RDW 15.5 H Plt Count 181 MPV 12.0 H Neut # (Auto) 5.8 Lymph # (Auto) 1.5 [place] # (Auto) 0.8 Eos # (Auto) 0.1 Baso # (Auto) 0.0 Absolute Nucleated RBC 0.00 Nucleated RBC % 0.0 Sodium 137 Potassium 4.1 Chloride 102 Carbon Dioxide 25 Anion Gap 10.0 BUN 11 Creatinine 0.5 Estimated GFR (MDRD) 119 Glucose 83 Calcium 8.8 Magnesium 2.0 Total Bilirubin 2.0 H AST 56 H ALT 42 Alkaline Phosphatase 89 B-Natriuretic Peptide Total Protein 7.5 Albumin 3.7 Globulin 3.8 Albumin/Globulin Ratio 1.0 TSH 0.66 08/22/22 15:30 WBC RBC Hgb Hct MCV MCH MCHC RDW Plt Count MPV Neut # (Auto) Lymph # (Auto) [place] # (Auto) Eos # (Auto) Baso # (Auto) Absolute Nucleated RBC Nucleated RBC % Sodium Potassium Chloride Carbon Dioxide Anion Gap BUN Creatinine Estimated GFR (MDRD) Glucose Calcium Magnesium Total Bilirubin AST ALT Alkaline Phosphatase B-Natriuretic Peptide 950 H Total Protein Albumin Globulin Albumin/Globulin Ratio TSH - Rads (name of study) Single view chest x-ray demonstrates small bilateral pleural effusions without evidence of CHF otherwise. Relevant Findings:: Final report received, EMP independent interpretation of test PD Medical Decision Making - ED course Complexity details: reviewed results (CBC reviewed and normal. CMP reviewed, very modest elevation in bilirubin and AST. TSH normal. BNP positive at 950.) ED course: 81-year-old woman with chronic A-fib presents with RVR. Some symptoms of mild CHF. She was rate controlled here with 2 doses of IV metoprolol. There was likely mild fluid overload based on her symptoms and elevated BNP despite lack of overt pulmonary edema on chest x-ray and she received a dose of Lasix IV here. She was very eager for discharge and she was rate controlled at that time so discharged but advised to follow-up with her coffee shop attendant ANTHONY. Departure - Departure Disposition: 01 Home, Self Care Clinical Impression: Atrial fibrillation Qualifiers: Atrial fibrillation type: unspecified Qualified Code(s): I48.91 - Unspecified atrial fibrillation Condition: Good Record reviewed to determine appropriate education?: Yes Instructions: Atrial Fibrillation Dc Prescriptions: Furosemide [Lasix] 20 mg PO DAILY #5 tablet Potassium Chloride 10 meq PO DAILY #5 cap Comments: Increase your metoprolol to 50 mg twice a day. To that I am adding Lasix, a diuretic, and potassium since the diuretic takes Potassium out of your system. Follow-up with Dr. Schneider, next available appointment calling today or tomorrow for an appointment. Return for new or worsening symptoms. Discharge Date/Time: 08/22/22 16:50
--- NOTE | 2022-08-22 15:38 | XRAY Report ---
PROCEDURE: Chest 1 View X-Ray INDICATIONS: dyspnea TECHNIQUE: One view of the chest was acquired. COMPARISON: 08/27/2018 FINDINGS: Surgical changes and devices: None. Lungs and pleura: Trace right and small left pleural effusions. Patchy consolidation in the left dorothea g base. Mediastinum: Mediastinal contours appear normal. Heart size is normal. Bones and chest wall: No suspicious bony lesions. Overlying soft tissues appear unremarkable. IMPRESSION: Left basilar atelectasis versus pneumonia. Small left and trace right pleural effusion. Reviewed by: Magalie Kumar MD, PhD on 08/22/2022 3:36 PM PDT Approved by: Magalie Kumar MD, PhD on 08/22/2022 3:36 PM PDT Station ID: [id number]
[2022-08-22 15:48] LABS: BASOPHILS % (AUTO) 0.4 %; EOSINOPHILS # (AUTO) 0.1 10^3/uL (0.0-0.7); EOSINOPHILS % (AUTO) 0.6 %; HCT - HEMATOCRIT 45.8 % (37.0-47.0); HGB - HEMOGLOBIN 14.1 g/dL (12.0-16.0); LYMPHOCYTES # (AUTO) 1.5 10^3/uL (1.5-3.5); LYMPHOCYTES % (AUTO) 18.1 %; MEAN CORPUSCULAR HEMOGLOBIN 28.7 pg (27.0-31.0); MEAN CORPUSCULAR HGB CONC 30.8 g/dL (32.0-36.0); MEAN CORPUSCULAR VOLUME 93.3 fL (81.0-99.0); MONOCYTES # (AUTO) 0.8 10^3/uL (0.0-1.0); MONOCYTES % (AUTO) 9.3 %; NEUTROPHILS # (AUTO) 5.8 10^3/uL (1.5-6.6); NEUTROPHILS % (AUTO) 71.1 %; PLT - PLATELET COUNT 181 10^3/uL (130-450); RED BLOOD COUNT 4.91 10^6/uL (4.20-5.40); RED CELL DISTRIBUTION WIDTH 15.5 % (12.0-15.0); WHITE BLOOD COUNT 8.2 x10^3/uL (4.8-10.8)
[2022-08-22] MEDS ORDERED: FUROSEMIDE 20 MG/2 ML VIAL IVP STA (15:52)
[2022-08-22 16:08] LABS: ALBUMIN 3.7 g/dL (3.2-5.5); CALCIUM 8.8 mg/dL (8.5-10.3); CREATININE 0.5 mg/dL (0.4-1.0); POTASSIUM 4.1 mmol/L (3.5-5.0); TOTAL PROTEIN 7.5 g/dL (6.7-8.2)
[2022-08-22 16:50] VITALS: BP 155/89
== END 2022-08-22 16:50 | disposition home or self-care (01) ==
LOC: ED 14:38
DX: I48.91 Unspecified atrial fibrillation (principal); E03.9 Hypothyroidism, unspecified; Z79.01 Long term (current) use of anticoagulants; Z79.899 Other long term (current) drug therapy
CPT/HCPCS: 36415; 80053; 83735; 83880; 84443; 85025; 93005; 96374; 96375; 96376; 99284

== ENCOUNTER 2023-05-03 17:34 | Outpatient (CLI) | payer MEDICARE | END 2023-05-03 17:35 | disposition critical access hospital (66) | LOC: EMS 17:34 | DX: I48.91 Unspecified atrial fibrillation (principal); Z79.01 Long term (current) use of anticoagulants | CPT/HCPCS: A0425; A0429 ==

== ENCOUNTER 2023-05-03 18:01 | Emergency (ER) | payer MEDICARE ==
[2023-05-03] MEDS ORDERED: METOPROLOL 5 MG/5 ML VIAL IVP STA (18:16)
--- NOTE | 2023-05-03 18:17 | ED Physician Documentation ---
History of Present Illness - Stated complaint Stated Complaint: AFIB - History obtained from History obtained from: Patient (She has a history of A-fib and is on Xarelto and metoprolol. She also has a history of hypothyroidism on levothyroxine.) - Additonal information Additional information: She went to her doctor's office today mostly for "emotional upset" wanting a referral to a therapist. They noticed her to be in A-fib with RVR. She feels like she went into A-fib maybe a month ago and has been compliant with her medications. She denies chest pain or trouble breathing. PD PAST MEDICAL HISTORY - Past Medical History Cardiovascular: None Respiratory: None Neuro: None Endocrine/Autoimmune: HyPOthyroidism GI: None PAYROLL LEAD: None : None HEENT: None Psych: None Musculoskeletal: None Derm: None - Past Surgical History Past Surgical History: Yes /PAYROLL LEAD: Dilation and currettage, Hysterectomy - Present Medications Home Medications: Ambulatory Orders Medication Instructions Recorded Confirmed Levothyroxine [Synthroid] 75 mcg PO QDAC 11/30/17 03/31/21 estradioL [Estradiol] 0.5 mg PO 11/30/17 Metoprolol Tartrate 50 mg PO DAILY #10 tablet 08/27/18 03/31/21 Phenazopyridine HCl [Pyridium] 100 mg PO TID PRN #15 tablet 03/31/21 Rivaroxaban [Xarelto] 20 mg PO DAILY 03/31/21 03/31/21 Sulfamethox/Trimeth 800/160 1 each PO BID #12 tablet 03/31/21 [Bactrim Ds 800/160] Furosemide [Lasix] 20 mg PO DAILY #5 tablet 08/22/22 Potassium Chloride 10 meq PO DAILY #5 cap 08/22/22 - Allergies Allergies/Adverse Reactions: Allergies Allergy/AdvReac Type Severity Reaction Status Date / Time aspirin Allergy Unknown Verified 08/22/22 14:55 Penicillins Allergy Rash Verified 08/22/22 14:55 codeine AdvReac Nausea Verified 08/22/22 14:55 - Social History Does the pt smoke?: No Smoking Status: Never smoker Does the pt drink ETOH?: Yes Does the pt have substance abuse?: No - Immunizations Immunizations are current?: Yes - POLST Patient has POLST: No PD ED PE NORMAL - Vitals Vital signs reviewed: Yes - General General: Alert and 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, No acute distress - Cardiac Cardiac: Other (Rapid and irregular without murmur) - Respiratory Respiratory: No respiratory distress, Clear bilaterally - Abdomen Abdomen: Non tender - Derm Derm: Normal color, Warm and dry - Extremities Extremities: Other (Trace pitting pedal edema, symmetric) - Neuro Neuro: Alert and 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, Normal speech Results - Vitals Vitals: Vital Signs - 24 hr 05/03/23 18:17 Temperature 37.0 C Heart Rate 81 Respiratory 18 Rate Blood Pressure 123/101 H O2 Saturation 100 Oxygen O2 Source Room air - EKG (time done) 1829 EKG releavant findings:: EKG personally interpreted by author of this note. Relevant findings are: Rate: Rate (enter#) (95) Rhythm: Atrial fibrillation [place]: Normal QRS: Normal Ischemia: ST depression (Lateral ST depression) Compare to prior EKG: Unchanged from prior EKG (Compared with August 22, 2022 there is no significant change. Lateral ST depression is old.) Computer interpretation: Agree with computer - Labs Labs: Laboratory Tests 05/03/23 05/03/23 18:37 18:37 WBC 7.2 RBC 4.71 Hgb 13.4 Hct 44.4 MCV 94.3 MCH 28.5 MCHC 30.2 L RDW 13.9 Plt Count 206 MPV 11.2 H Neut # (Auto) 5.2 Lymph # (Auto) 1.1 L [place] # (Auto) 0.7 Eos # (Auto) 0.2 Baso # (Auto) 0.0 Absolute Nucleated RBC 0.00 Nucleated RBC % 0.0 Sodium 138 Potassium 4.0 Chloride 102 Carbon Dioxide 27 Anion Gap 9.0 BUN 19 Creatinine 0.7 Estimated GFR (MDRD) 80 L Glucose 167 H Calcium 9.8 Magnesium 2.0 Total Bilirubin 0.6 AST 29 ALT 16 Alkaline Phosphatase 88 Total Protein 7.5 Albumin 3.9 Globulin 3.6 Albumin/Globulin Ratio 1.1 TSH 0.67 PD Medical Decision Making - ED course ED course: 82-year-old woman presents with symptomatic rapid atrial fibrillation. By her history has been going on for about a month. She was administered a single dose of IV metoprolol with rate control into the 80s. I considered cardioverting her, she is anticoagulated, but given that she has been in A-fib for at least a month and possibly permanently I did not feel that this would be fruitful. Lab work was unremarkable with normal CBC, CMP, and TSH save minor hype rglycemia. Departure - Departure Disposition: 01 Home, Self Care Clinical Impression: Atrial fibrillation Qualifiers: Atrial fibrillation type: unspecified Qualified Code(s): I48.91 - Unspecified atrial fibrillation Condition: Good Record reviewed to determine appropriate education?: Yes Instructions: Atrial Fibrillation Dc Comments: You were seen today for rapid atrial fibrillation. It was relatively easy to fix your heart rate with a single dose of IV metoprolol. Your lab work was normal including thyroid studies. Blood glucose was slightly high at 167 which needs to be followed by your primary care physician. I would recommend changing your metoprolol dose to a full dose (100 mg) in the morning and still the half dose (50 mg) in the evening. Follow-up with Dr. Schneider, calling his office for the next available appointment. Return for new or worsening symptoms. Your other medications should not change.
[2023-05-03 18:46] LABS: BASOPHILS % (AUTO) 0.6 %; EOSINOPHILS # (AUTO) 0.2 10^3/uL (0.0-0.7); EOSINOPHILS % (AUTO) 2.1 %; HCT - HEMATOCRIT 44.4 % (37.0-47.0); HGB - HEMOGLOBIN 13.4 g/dL (12.0-16.0); LYMPHOCYTES # (AUTO) 1.1 10^3/uL (1.5-3.5); LYMPHOCYTES % (AUTO) 15.6 %; MEAN CORPUSCULAR HEMOGLOBIN 28.5 pg (27.0-31.0); MEAN CORPUSCULAR HGB CONC 30.2 g/dL (32.0-36.0); MEAN CORPUSCULAR VOLUME 94.3 fL (81.0-99.0); MEAN PLATELET VOLUME 11.2 fL (7.9-10.8); MONOCYTES # (AUTO) 0.7 10^3/uL (0.0-1.0); MONOCYTES % (AUTO) 9.4 %; NEUTROPHILS # (AUTO) 5.2 10^3/uL (1.5-6.6); NEUTROPHILS % (AUTO) 71.9 %; PLT - PLATELET COUNT 206 10^3/uL (130-450); RED BLOOD COUNT 4.71 10^6/uL (4.20-5.40); RED CELL DISTRIBUTION WIDTH 13.9 % (12.0-15.0); WHITE BLOOD COUNT 7.2 x10^3/uL (4.8-10.8)
[2023-05-03 19:06] LABS: ALBUMIN 3.9 g/dL (3.2-5.5); ALBUMIN/GLOBULIN RATIO 1.1 (1.0-2.2); BILIRUBIN,TOTAL 0.6 mg/dL (0.2-1.0); CALCIUM 9.8 mg/dL (8.5-10.3); CREATININE 0.7 mg/dL (0.6-1.3); TOTAL PROTEIN 7.5 g/dL (6.4-8.9)
[2023-05-03 19:18] LABS: THYROID STIMULATING HORMONE 0.67 uIU/mL (0.34-5.60)
[2023-05-03 19:43] VITALS: BP 167/94; O2SAT 99
== END 2023-05-03 19:42 | disposition home or self-care (01) ==
LOC: EDUNIT# → ED 18:01
DX: I48.91 Unspecified atrial fibrillation (principal); Z79.01 Long term (current) use of anticoagulants
CPT/HCPCS: 36415; 80053; 83735; 84443; 85025; 93005; 96374; 99284

== ENCOUNTER 2023-06-28 13:47 | Outpatient (CLI) | payer MEDICARE | END 2023-06-28 13:48 | disposition home or self-care (01) | LOC: DI 13:47 | PROVIDERS: ATTEND Internal Medicine Cardiovascular Disease | DX: I48.0 Paroxysmal atrial fibrillation (principal); R60.9 Edema, unspecified; I51.7 Cardiomegaly; I51.89 Other ill-defined heart diseases; I34.0 Nonrheumatic mitral (valve) insufficiency; I87.8 Other specified disorders of veins; J90 Pleural effusion, not elsewhere classified | CPT/HCPCS: 93307 ==

== ENCOUNTER 2023-07-06 13:55 | Outpatient (CLI) | payer MEDICARE ==
[2023-07-06 20:16] LABS: CALCIUM 9.7 mg/dL (8.5-10.3); CREATININE 0.8 mg/dL (0.6-1.3)
== END 2023-07-06 13:56 | disposition home or self-care (01) ==
LOC: LAB.S 13:55
PROVIDERS: ATTEND Internal Medicine Cardiovascular Disease
DX: D68.69 Other thrombophilia (principal); I48.21 Permanent atrial fibrillation
CPT/HCPCS: 36415; 80048

== ENCOUNTER 2023-07-19 16:18 | Outpatient (CLI) | payer MEDICARE ==
--- NOTE | 2023-07-20 12:23 | XRAY Report ---
PROCEDURE: Chest 2V INDICATIONS: PLEURAL EFFUSION TECHNIQUE: 2 views of the chest were acquired. COMPARISON: None. FINDINGS: Surgical changes and devices: None. Lungs and pleura: Moderate left and small right pleural effusions. Mediastinum: Mediastinal contours appear normal. Heart size is normal. Bones and chest wall: No suspicious bony lesions. Overlying soft tissues appear unremarkable. IMPRESSION: Moderate left and small right pleural effusions. Reviewed by: Hugh Whittaker MD on 07/20/2023 12:21 PM PST Approved by: Hugh Whittaker MD on 07/20/2023 12:21 PM PST Station ID: [id number]
== END 2023-07-19 16:19 | disposition home or self-care (01) ==
LOC: DI 16:18
PROVIDERS: ATTEND Internal Medicine Cardiovascular Disease
DX: J90 Pleural effusion, not elsewhere classified (principal)

== ENCOUNTER 2023-07-31 18:18 | Emergency (ER) | payer MEDICARE ==
[2023-07-31 18:50] LABS: BASOPHILS # (AUTO) 0.1 10^3/uL (0.0-0.1); BASOPHILS % (AUTO) 0.7 %; EOSINOPHILS # (AUTO) 0.1 10^3/uL (0.0-0.7); EOSINOPHILS % (AUTO) 0.6 %; HCT - HEMATOCRIT 54.3 % (37.0-47.0); HGB - HEMOGLOBIN 16.3 g/dL (12.0-16.0); LYMPHOCYTES # (AUTO) 2.2 10^3/uL (1.5-3.5); LYMPHOCYTES % (AUTO) 25.9 %; MEAN CORPUSCULAR HEMOGLOBIN 28.6 pg (27.0-31.0); MEAN CORPUSCULAR VOLUME 95.4 fL (81.0-99.0); MEAN PLATELET VOLUME 11.8 fL (7.9-10.8); MONOCYTES # (AUTO) 0.8 10^3/uL (0.0-1.0); MONOCYTES % (AUTO) 9.1 %; NEUTROPHILS # (AUTO) 5.5 10^3/uL (1.5-6.6); NRBC ABSOLUTE COUNT (AUTO) 0.03 x10^3/uL; NUCLEATED RED BLOOD CELLS AUTO 0.3 /100WBC; PLT - PLATELET COUNT 221 10^3/uL (130-450); RED BLOOD COUNT 5.69 10^6/uL (4.20-5.40); RED CELL DISTRIBUTION WIDTH 18.2 % (12.0-15.0); WHITE BLOOD COUNT 8.7 x10^3/uL (4.8-10.8)
[2023-07-31] MEDS: SODIUM CHLORIDE 0.9% 1,000 ML IV STA (19:21)
[2023-07-31] MEDS: METOPROLOL 5 MG/5 ML VIAL IVP STA (19:21)
--- NOTE | 2023-07-31 19:31 | ED Physician Documentation ---
History of Present Illness - Stated complaint Stated Complaint: AFIB/ SENT BY [facility] - Chief complaint Chief Complaint: Cardiac - History obtained from History obtained from: Patient - Additonal information Additional information: Patient is brought to the emergency department by EMS for chief complaint of "my A-fib is acting up again" and nausea for the last 2 days. The patient has a history of chronic atrial fibrillation which has gone from paroxysmal to chronic, and is as best we can determine on metoprolol 150 mg daily and Xarelto 20 mg daily. She states she has been taking her meds but she has been feeling nauseated for the last couple days every time she eats chocolate. She states she has just had a generally decreased appetite, but is able to eat some chicken noodle soup today without too much difficulty. Patient denies any abdominal pain or diarrhea. She states that she has had mild edema in her lower legs but seems to be doing well now. She denies any shortness of breath but states her chest feels "tired". She states that she has been trying to take her Lasix, though she does not like it because it keeps her up all night urinating. She states her ship construction teacher wanted her to be seen again in about a month but she has not made an appointment yet. She had an echocardiogram done within the last couple of months that showed an EF of 45%. No chest pain recently. No other complaints at this time. She states she mainly came in tonight because her insisted she checked out for the nausea. PD PAST MEDICAL HISTORY - Past Medical History Past Medical History: Yes Cardiovascular: Atrial fibrillation Respiratory: None Neuro: None Endocrine/Autoimmune: HyPOthyroidism GI: None TREE DOCTOR: None : None HEENT: None Psych: None Musculoskeletal: None Derm: None - Past Surgical History Past Surgical History: Yes /TREE DOCTOR: Dilation and currettage, Hysterectomy - Present Medications Home Medications: Ambulatory Orders Medication Instructions Recorded Confirmed Levothyroxine [Synthroid] 75 mcg PO QDAC 11/30/17 03/31/21 estradioL [Estradiol] 0.5 mg PO 11/30/17 Metoprolol Tartrate 50 mg PO DAILY #10 tablet 08/27/18 03/31/21 Phenazopyridine HCl [Pyridium] 100 mg PO TID PRN #15 tablet 03/31/21 Rivaroxaban [Xarelto] 20 mg PO DAILY 03/31/21 03/31/21 Sulfamethox/Trimeth 800/160 1 each PO BID #12 tablet 03/31/21 [Bactrim Ds 800/160] Furosemide [Lasix] 20 mg PO DAILY #5 tablet 08/22/22 Potassium Chloride 10 meq PO DAILY #5 cap 08/22/22 Furosemide [Lasix] 20 mg PO DAILY #5 tablet 06/16/23 Metoprolol Succinate [Toprol Xl] 3 tab PO DAILY #90 tablet 06/16/23 - Allergies Allergies/Adverse Reactions: Allergies Allergy/AdvReac Type Severity Reaction Status Date / Time aspirin Allergy Mild Unknown Verified 07/31/23 18:22 Penicillins Allergy Rash Verified 07/31/23 18:22 codeine AdvReac Nausea Verified 07/31/23 18:22 - Social History Does the pt smoke?: No Smoking Status: Never smoker Does the pt drink ETOH?: Yes Does the pt have substance abuse?: No - Immunizations Immunizations are current?: Yes - POLST Patient has POLST: No PD ED PE NORMAL - Vitals Vital signs reviewed: Yes - General General: Alert and 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, No acute distress, Well developed/nourished - HEENT HEENT: Atraumatic, PERRL, EOMI, Moist mucous membranes - Neck Neck: Supple, no meningeal sign - Cardiac Cardiac: RRR, No murmur - Respiratory Respiratory: No respiratory distress, Clear bilaterally - Abdomen Abdomen: Soft, Non tender, Non distended - Derm Derm: Normal color, Warm and dry, No rash - Extremities Extremities: No deformity, No edema - Neuro Neuro: Other (Grossly intact) - Psych Psych: Normal mood, Normal affect Results - Vitals Vitals: Vital Signs - 24 hr 07/31/23 07/31/23 07/31/23 18:22 18:58 19:28 Temperature 36.6 C Heart Rate 132 H 138 H 136 H Respiratory 18 17 21 Rate Blood Pressure 119/87 H 115/95 H 132/88 H O2 Saturation 98 92 93 07/31/23 07/31/23 07/31/23 19:58 20:28 20:58 Temperature Heart Rate 132 H 134 H 137 H Respiratory 20 23 20 Rate Blood Pressure 128/108 H 129/89 H 124/94 H O2 Saturation 92 99 100 07/31/23 07/31/23 07/31/23 21:28 22:00 22:50 Temperature 36.7 C Heart Rate 132 H 107 H 79 Respiratory 23 21 18 Rate Blood Pressure 119/107 H 114/82 H O2 Saturation 95 96 Oxygen O2 Source Room air - EKG (time done) 1826 EKG releavant findings:: EKG personally interpreted by author of this note. Relevant findings are: Rate: Rate (enter#) (129) Rhythm: Atrial fibrillation [place]: Normal QRS: Low voltage (Borderline) Ischemia: Normal ST segments Compare to prior EKG: Old EKG unavailable Computer interpretation: Agree with computer - Labs Labs: Laboratory Tests 07/31/23 07/31/23 18:45 19:23 WBC 8.7 RBC 5.69 H Hgb 16.3 H Hct 54.3 H MCV 95.4 MCH 28.6 MCHC 30.0 L RDW 18.2 H Plt Count 221 MPV 11.8 H Neut # (Auto) 5.5 Lymph # (Auto) 2.2 [place] # (Auto) 0.8 Eos # (Auto) 0.1 Baso # (Auto) 0.1 Absolute Nucleated RBC 0.03 Nucleated RBC % 0.3 Sodium 141 Potassium 4.6 H Chloride 104 Carbon Dioxide 23 Anion Gap 14.0 H BUN 26 H Creatinine 0.9 Estimated GFR (MDRD) 60 L Glucose 91 Calcium 10.2 Magnesium 1.9 Total Bilirubin 1.3 H AST 192 H ALT 174 H Alkaline Phosphatase 72 Total Protein 7.4 Albumin 3.9 Globulin 3.5 Albumin/Globulin Ratio 1.1 TSH 0.94 PD Medical Decision Making - ED course Complexity details: reviewed old records, reviewed results, re-evaluated patient, considered differential, d/w patient ED course: Patient was worked up with labs, EKG, and chest x-ray. She was given IV metoprolol 5 mg and p.o. metoprolol XL 50 mg initially. Her heart rate did come down mildly, but she was still regularly running in the 120s and so I did give her doses of IV and oral Cardizem. The patient was observed following this and was found to have a heart rate stabilized in the 80s to 90s, this still in atrial fibrillation. The patient's labs were unremarkable and I felt she was stable for discharge home. We have discussed the need for close follow-up with her ship construction teacher and also, they need to take all of her medications as directed. We have discussed the usual indications for return. - Critical Care Time(min): 30 Comments: Critical care time was necessary, due to high probability of imminent No life- threatening decline, secondary to cardiac tachydysrhythmia in the form of atrial fibrillation with rapid ventricular response. Time Includes: Direct patient care, Review records, Reassess patient, Document care, Coordinate care, See progress note Data interpretation: Labs, Pulse ox, CXR, Cardiac output, See progress note Departure - Departure Disposition: 01 Home, Self Care Clinical Impression: Atrial fibrillation with rapid ventricular response Condition: Stable Instructions: ED Afib Comments: Your heart rhythm was atrial fibrillation, as usual, but your heart rate was a bit elevated, so we have given you some medicine tonight to bring that down. Your heart responded very well to this, And your heart rate is averaging normal now. You are on medications already for your atrial fibrillation, and it is very important that you follow regularly with your ship construction teacher to Evaluate your heart and your medication regimen. Please call first thing tomorrow to make your next appointment with your ship construction teacher, as you have stated that he wanted to see you in a month but you have not made the appointment yet. Please also make a follow-up appointment with your primary doctor. At this point in time, no emergent condition has been identified and you are stable for discharge home. Please be sure you are taking all your medications every day, as directed. Forms: PCP List Discharge Date/Time: 07/31/23 23:15
[2023-07-31 19:40] LABS: MAGNESIUM 1.9 mg/dL (1.7-2.3)
[2023-07-31 19:46] LABS: ALBUMIN 3.9 g/dL (3.2-5.5); ALBUMIN/GLOBULIN RATIO 1.1 (1.0-2.2); BILIRUBIN,TOTAL 1.3 mg/dL (0.2-1.0); CALCIUM 10.2 mg/dL (8.5-10.3); CREATININE 0.9 mg/dL (0.6-1.3); POTASSIUM 4.6 mmol/L (3.5-4.5); TOTAL PROTEIN 7.4 g/dL (6.4-8.9)
[2023-07-31] MEDS: METOPROLOL SUCCINATE 50 MG TABLET PO STA (19:46)
[2023-07-31 19:57] LABS: THYROID STIMULATING HORMONE 0.94 uIU/mL (0.34-5.60)
--- NOTE | 2023-07-31 19:58 | XRAY Report ---
PROCEDURE: Chest 1V INDICATIONS: dyspnea TECHNIQUE: One view of the chest was acquired. COMPARISON: Chest radiograph 07/19/2023. FINDINGS: Surgical changes and devices: None. Lungs and pleura: No pneumothorax. Moderate left pleural effusion with subjacent atelectasis. Mediastinum: Mediastinal contours appear normal. Heart size is normal. Bones and chest wall: No suspicious bony lesions. Overlying soft tissues appear unremarkable. IMPRESSION: Moderate left pleural effusion with subjacent atelectasis. Reviewed by: Falguni Mcknight MD on 07/31/2023 7:57 PM PST Approved by: Falguni Mcknight MD on 07/31/2023 7:57 PM PST Station ID: [id number]
[2023-07-31] MEDS: diltiaZEM INJ 5 MG/ML VIAL IVP STA (22:16)
[2023-07-31] MEDS: diltiaZEM CD 120 MG CAPSULE PO STA (22:16)
[2023-07-31 22:54] VITALS: BP 114/82; O2SAT 96
== END 2023-07-31 23:15 | disposition home or self-care (01) ==
LOC: ED 18:18
DX: I48.20 Chronic atrial fibrillation, unspecified (principal); Z79.01 Long term (current) use of anticoagulants; E03.9 Hypothyroidism, unspecified; Z79.899 Other long term (current) drug therapy
CPT/HCPCS: 36415; 71045; 80053; 83735; 84443; 85025; 93005; 96374; 96375; 99285; 99291; A9270

== ENCOUNTER 2023-08-28 10:14 | Outpatient (CLI) | payer MEDICARE ==
[2023-08-28 15:15] LABS: CALCIUM 9.6 mg/dL (8.5-10.3); CREATININE 0.8 mg/dL (0.6-1.3); POTASSIUM 4.3 mmol/L (3.5-4.5)
== END 2023-08-28 10:15 | disposition home or self-care (01) ==
LOC: LAB.S 10:14
PROVIDERS: ATTEND Internal Medicine Cardiovascular Disease
DX: I50.20 Unspecified systolic (congestive) heart failure (principal)
CPT/HCPCS: 36415; 80048

== ENCOUNTER 2023-08-30 13:26 | Outpatient (CLI) | payer MEDICARE | END 2023-08-30 13:27 | disposition home or self-care (01) | LOC: DI 13:26 | PROVIDERS: ATTEND Internal Medicine Cardiovascular Disease | DX: I50.20 Unspecified systolic (congestive) heart failure (principal); I42.9 Cardiomyopathy, unspecified; I07.1 Rheumatic tricuspid insufficiency | CPT/HCPCS: 93307 ==

== ENCOUNTER 2023-09-20 12:37 | Outpatient (CLI) | payer MEDICARE ==
--- NOTE | 2023-09-20 13:54 | XRAY Report ---
PROCEDURE: Chest 2V INDICATIONS: L PLEURAL EFFUSION TECHNIQUE: 2 views of the chest were acquired. COMPARISON: Chest x-ray 07/31/2023 FINDINGS: Surgical changes and devices: None. Lungs and pleura: Mild left effusion markedly improved compared to prior exam. Mediastinum: Mediastinal contours appear normal. Heart size is normal. Bones and chest wall: No suspicious bony lesions. Overlying soft tissues appear unremarkable. IMPRESSION: Persistent although markedly improved left effusion. Recommend interval DOCUMENT complete resolution and exclude presence of underlying mass. Reviewed by: Cathy Mg MD on 09/20/2023 1:53 PM PDT Approved by: Cathy Mg MD on 09/20/2023 1:53 PM PDT Station ID: [id number]
== END 2023-09-20 12:38 | disposition home or self-care (01) ==
LOC: DI 12:37
PROVIDERS: ATTEND Internal Medicine Cardiovascular Disease
DX: J90 Pleural effusion, not elsewhere classified (principal)

== ENCOUNTER 2023-10-25 08:00 | Outpatient (CLI) | payer MEDICARE ==
[2023-10-25 19:55] LABS: HGB - HEMOGLOBIN 11.1 g/dL (12.0-16.0); MEAN CORPUSCULAR HEMOGLOBIN 37.5 pg (27.0-31.0); MEAN CORPUSCULAR HGB CONC 35.8 g/dL (32.0-36.0); MEAN CORPUSCULAR VOLUME 104.7 fL (81.0-99.0); MEAN PLATELET VOLUME 12.1 fL (7.9-10.8); RED BLOOD COUNT 2.96 10^6/uL (4.20-5.40); RED CELL DISTRIBUTION WIDTH 19.8 % (12.0-15.0)
[2023-10-25 20:05] LABS: CALCIUM 9.8 mg/dL (8.5-10.3); CREATININE 1.1 mg/dL (0.6-1.3); POTASSIUM 4.3 mmol/L (3.5-4.5)
== END 2023-10-25 23:59 | disposition home or self-care (01) ==
LOC: LAB.S 08:00
PROVIDERS: ATTEND Nurse Practitioner
DX: R42 Dizziness and giddiness (principal)
CPT/HCPCS: 36415; 80048; 85027

== ENCOUNTER 2024-01-30 07:30 | Outpatient (CLI) | payer MEDICARE ==
[2024-01-30 16:42] LABS: ALBUMIN 3.9 g/dL (3.2-5.5); ALBUMIN/GLOBULIN RATIO 1.1 (1.0-2.2); BILIRUBIN,TOTAL 0.5 mg/dL (0.2-1.0); CALCIUM 9.4 mg/dL (8.5-10.3); CREATININE 1.2 mg/dL (0.6-1.3); POTASSIUM 4.6 mmol/L (3.5-4.5); TOTAL PROTEIN 7.4 g/dL (6.4-8.9)
== END 2024-01-30 07:31 | disposition home or self-care (01) ==
LOC: LAB.S 07:30
PROVIDERS: ATTEND Internal Medicine
DX: I50.9 Heart failure, unspecified (principal); R94.4 Abnormal results of kidney function studies
CPT/HCPCS: 36415; 80053; 83880

== ENCOUNTER 2024-02-07 07:00 | Outpatient (CLI) | payer MEDICARE ==
--- NOTE | 2024-02-07 15:18 | XRAY Report ---
PROCEDURE: Forearm RT INDICATIONS: RIGHT FOREARM FOREIGN BODY TECHNIQUE: 2 views of the forearm were acquired. COMPARISON: None. FINDINGS: Bones: No fractures or dislocations. No suspicious bony lesions. Soft tissues: No suspicious soft tissue calcifications or masses. IMPRESSION: No acute bony abnormality. Reviewed by: Waldo Cool MD on 02/07/2024 3:17 PM PDT Approved by: Waldo Cool MD on 02/07/2024 3:17 PM PDT Station ID: [id number]
== END 2024-02-07 23:59 | disposition home or self-care (01) ==
LOC: DI.S 07:00
PROVIDERS: ATTEND Physician Assistant Medical
DX: M60.231 Foreign body granuloma of soft tissue, not elsewhere classified, right forearm (principal)